=== PATIENT | male | born 1965 | race Caucasian/White ===

== ENCOUNTER 2017-01-19 16:51 | Emergency (ER) | payer MEDICAID ==
[2017-01-19 17:03] VITALS: BP 173/94
[2017-01-19] MEDS ORDERED: MORPHINE SULFATE 10 MG/ML INJ IM ONE (17:13)
[2017-01-19] MEDS ORDERED: ONDANSETRON 4 MG TAB.RAPDIS PO ONE (17:14)
[2017-01-19] MEDS ORDERED: METHOCARBAMOL 500 MG TABLET PO ONE (17:14)
--- NOTE | 2017-01-19 17:38 | ER Document Report ---
ED Fall - General Chief Complaint: Fall Stated Complaint: FALL,NECK,BACK PAIN Notes: 51 yo male c/o neck and upper back pain after falling from ladder. pt reports he fell from the 4th rung of the ladder. landed in a sitting position with right foot on 1st rung. pt denies hitting his head. no LOC, no shortness of breath or chest pain. fell approximately 6h [employer]. pain has progressively worsened. + radiation to left arm - HPI Occurred: This morning Where: Home Context: Fell from height - approx 4 ft Associated symptoms: None Location of injury/pain: Back - mid/upper, Neck Adult Front & Back: 1 - pain 2 - pain 3 - pain, numbness Quality of pain: Sharp - Related data Allergies/Adverse Reactions: No Known Allergies Allergy (Unverified 01/19/17 17:09) Past Medical History - General Information source: Patient - Social History Smoking Status: Current Every Day Smoker Chew tobacco use (# tins/day): No Frequency of alcohol use: None Drug Abuse: None Lives with: Family Family History: Reviewed & Not Pertinent - Past Medical History Cardiac Medical History: Reports: Hx Hypertension Review of Systems - Review of Systems Constitutional: No symptoms reported EENT: No symptoms reported Cardiovascular: No symptoms reported Respiratory: No symptoms reported Gastrointestinal: No symptoms reported Genitourinary: No symptoms reported Male Genitourinary: No symptoms reported Musculoskeletal: See HPI, Back pain, Neck pain Skin: No symptoms reported Hematologic/Lymphatic: No symptoms reported Neurological/Psychological: No symptoms reported -: Yes All other systems reviewed and negative Physical Exam - Vital signs Vitals: Temp Pulse Resp BP Pulse Ox 98.6 F 108 H 16 173/94 H 97 01/19/17 17:00 01/19/17 17:00 01/19/17 17:00 01/19/17 17:00 01/19/17 17:00 Interpretation: Normal - General General appearance: Alert In distress: Moderate - HEENT Head: Normocephalic, Atraumatic Eyes: Normal Conjunctiva: Normal Pupils: PERRL Mucous membranes: Moist Neck: Other - + cervical tenderness, guarded neck movement - Respiratory Respiratory status: No respiratory distress Chest status: Nontender Breath sounds: Normal Chest palpation: Normal - Cardiovascular Rhythm: Regular Heart sounds: Normal auscultation Murmur: No - Abdominal Inspection: Normal Distension: No distension Bowel sounds: Normal Tenderness: Nontender Organomegaly: No organomegaly - Back Back: Tender - + thoracic spinal and paraspinal tenderness - Extremities General upper extremity: Normal inspection, Nontender, Normal color, Normal ROM , Normal temperature General lower extremity: Normal inspection, Nontender, Normal color, Normal ROM , Normal temperature, Normal weight bearing. No: Everardo's sign - Neurological Neuro grossly intact: Yes Cognition: Normal Orientation: AAOx4 Gala Coma Scale Eye Opening: Spontaneous Gala Coma Scale Verbal: Oriented Gala Coma Scale Motor: Obeys Commands Gala Coma Scale Total: 15 Speech: Normal Motor strength normal: LUE, RUE, LLE, RLE Sensory: Normal - Psychological Associated symptoms: Normal affect, Normal mood - Skin Skin Temperature: Warm Skin Moisture: Dry Skin Color: Normal Course - Re-evaluation Re-evalutation: 01/19/17 17:41 pt evaluated, imaging and pain meds ordered. will continue to monitor 01/19/17 18:12 xrays negative. results reviewed with patient. will DC home with pain meds, pt to follow up with primary care. pt agreeable with plan and stable for discharge - Vital Signs Vital signs: Temp Pulse Resp BP Pulse Ox 98.6 F 108 H 16 173/94 H 97 01/19/17 17:12 01/19/17 17:12 01/19/17 17:12 01/19/17 17:12 01/19/17 17:12 Discharge - Discharge Clinical Impression: Thoracic sprain Cervical strain Qualifiers: Encounter type: initial encounter Qualified Code(s): S16.1XXA - Strain of muscle, fascia and tendon at neck level, initial encounter Hypertension Qualifiers: Hypertension type: essential hypertension Qualified Code(s): I10 - Essential ( primary) hypertension Condition: Stable Disposition: HOME, SELF-CARE Instructions: Neck Injury (Cervical Strain) ([facility]), Oral Narcotic Medication ( [facility]), Muscle Relaxers ([facility]), Ibuprofen (General) ([facility]), Warm Packs ([facility]), Ice Packs ([facility]) Additional Instructions: Your xrays were negative for fracture Take meds as prescribed alternate ice/heat to painful areas please follow up with your primary care if pain persists Prescriptions: Ibuprofen [Motrin 800 Mg Tablet] 800 mg PO Q6H #20 tablet Methocarbamol [Robaxin 500 Mg Tablet] 1,000 mg PO Q6 #30 tablet Oxycodone HCl/Acetaminophen [Percocet 5-325 mg Tablet] 1 - 2 tab PO ASDIR PRN # 25 tablet PRN Reason: Forms: Elevated Blood Pressure
== END 2017-01-19 18:29 | disposition home or self-care (01) ==
LOC: EDBD 16:51 → ER 16:51
DX: S23.3XXA Sprain of ligaments of thoracic spine, initial encounter (principal); S16.1XXA Strain of muscle, fascia and tendon at neck level, initial encounter; I10 Essential (primary) hypertension; M54.2 Cervicalgia; M54.9 Dorsalgia, unspecified; W10.9XXA Fall (on) (from) unspecified stairs and steps, initial encounter; F17.200 Nicotine dependence, unspecified, uncomplicated
CPT/HCPCS: 99284; 96372; 72070; 72125; S0119; J3490; J2270

== ENCOUNTER 2017-01-20 22:49 | Emergency (ER) | payer MEDICAID ==
[2017-01-20 23:35] VITALS: BP 159/102
== END 2017-01-21 03:53 | disposition left against medical advice (07) ==
LOC: ER 22:49
DX: Z53.21 Procedure and treatment not carried out due to patient leaving prior to being seen by health care provider (principal)

== ENCOUNTER 2017-01-21 02:09 | Emergency (ER) | payer MEDICAID ==
[2017-01-21] MEDS ORDERED: DIAZEPAM INJ 10 MG/2 ML DISP.SYRIN IM ONE (04:14)
--- NOTE | 2017-01-21 04:16 | ER Document Report ---
ED Neck/Back Problem - General Chief Complaint: Back Injury Stated Complaint: FALL,BACK PAIN Notes: Patient is a 51-year-old male that comes emergency department for chief complaint of pain in his mid upper back, worse in the left upper back/shoulder area. He states that he fell off a ladder 2 days ago (fell 4 rungs and backwards, not from a significant height) and was evaluated in this emergency department with negative imaging, he states that he has been taking his medicine but he has become more stiff, tight, and now he is having painful spasms that he cannot stand. Patient denies numbness, denies bowel or bladder changes, denies weakness, just states the pain is worsened. - Related Data Allergies/Adverse Reactions: No Known Allergies Allergy (Unverified 01/19/17 17:09) Past Medical History - General Information source: Patient - Social History Smoking Status: Never Smoker Frequency of alcohol use: None Drug Abuse: None Lives with: Family Family History: Reviewed & Not Pertinent - Past Medical History Cardiac Medical History: Reports: Hx Hypertension Renal/ Medical History: Denies: Hx Peritoneal Dialysis Surgical Hx: Negative Review of Systems - Review of Systems Constitutional: No symptoms reported EENT: No symptoms reported Cardiovascular: No symptoms reported Respiratory: No symptoms reported Gastrointestinal: No symptoms reported Genitourinary: No symptoms reported Male Genitourinary: No symptoms reported Musculoskeletal: See HPI Skin: No symptoms reported Hematologic/Lymphatic: No symptoms reported Neurological/Psychological: No symptoms reported Physical Exam - Vital signs Vitals: Temp Pulse Resp Pulse Ox 98.4 F 123 H 19 98 01/21/17 02:27 01/21/17 02:27 01/21/17 02:27 01/21/17 02:27 Interpretation: Normal - General General appearance: Anxious In distress: Mild - Patient appears to be in some pain - HEENT Head: Normocephalic, Atraumatic Eyes: Normal Conjunctiva: Normal Extraocular movements intact: Yes Eyelashes: Normal Pupils: PERRL Nasal: Normal Mouth/Lips: Normal Mucous membranes: Normal Pharynx: Normal Neck: Normal - Respiratory Respiratory status: No respiratory distress Chest status: Nontender. No: Tender Breath sounds: Normal. No: Decreased air movement, Wheezing Chest palpation: Normal - Cardiovascular Rhythm: Regular, Tachycardia Heart sounds: Normal auscultation, S1 appreciated, S2 appreciated Murmur: No - Abdominal Inspection: Normal Distension: No distension Bowel sounds: Normal Tenderness: Nontender Organomegaly: No organomegaly - Back Back: Tender - Tender bilateral para thoracic spinal muscles with spasm all the way up to the trapezius muscles, no midline tenderness, no saddle anesthesia, patient moves all extremities without difficulty, patient can ambulate without difficulty, normal distal neurovascular exam - Extremities General upper extremity: Normal inspection, Nontender, Normal ROM, Normal strength General lower extremity: Normal inspection, Nontender, Normal ROM, Normal strength - Neurological Neuro grossly intact: Yes Cognition: Normal Orientation: AAOx4 [place] Coma Scale Eye Opening: Spontaneous Gala Coma Scale Verbal: Oriented Siler Coma Scale Motor: Obeys Commands Gala Coma Scale Total: 15 Speech: Normal Motor strength normal: LUE, RUE, LLE, RLE Sensory: Normal - Psychological Associated symptoms: Normal affect, Normal mood - Skin Skin Temperature: Warm Skin Moisture: Dry Skin Color: Normal Course - Re-evaluation Re-evalutation: Patient tachycardic and hypertensive, however he appears much more relaxed on reexamination. I requested additional workup because of continued elevated vital signs but patient states that he has to leave because he has to take care of his father, he declines further workup, he denies chest pain, abdominal pain , headache, of note patient's vital signs were the same last time, patient states he has blood pressure medication at home which she will go home and take , he declines further workup. Patient agrees to return for any concerning or worsening symptoms. - Vital Signs Vital signs: Temp Pulse Resp BP Pulse Ox 98.4 F 123 H 19 171/105 H 98 01/21/17 02:27 01/21/17 02:27 01/21/17 02:27 01/21/17 02:29 01/21/17 02:27 Discharge - Discharge Clinical Impression: Upper back pain Condition: Stable Disposition: HOME, SELF-CARE Additional Instructions: Take medication as provided, apply heat to the area and rest, follow-up with your primary care. Return to the emergency department immediately for any concerning or worsening symptoms including chest pain, abdominal pain, numbness, fever, headache, or any other concerning symptoms. Prescriptions: Diazepam [Valium 5 mg Tablet] 1 - 2 tab PO TID #20 tablet Forms: Elevated Blood Pressure
[2017-01-21] MEDS ORDERED: HYDROMORPHONE HCL INJ/PF 2 MG/ML AMPULE IM ONE (05:24)
[2017-01-21 06:28] VITALS: BP 170/106
== END 2017-01-21 06:27 | disposition home or self-care (01) ==
LOC: ER 02:09
DX: M54.6 Pain in thoracic spine (principal); R00.0 Tachycardia, unspecified; I10 Essential (primary) hypertension; W11.XXXA Fall on and from ladder, initial encounter
CPT/HCPCS: 99283; 96372; J3360; J1170

== ENCOUNTER 2017-01-23 23:37 | Emergency (ER) | payer MEDICAID ==
--- NOTE | 2017-01-23 23:51 | ER Document Report ---
ED Neck/Back Problem - General Chief Complaint: Back Pain Stated Complaint: BACK PAIN Notes: The patient is a 51-year-old male, PMHx chronic lower back pain, who presents with continuing neck and back pain after he fell off a ladder 3 days ago. He was seen in the ER after the accident and had a negative CT of his cervical and lumbar spines. He is taking Percocet, Robaxin and Valium without much relief of his symptoms. He was given 1 mg IM Dilaudid by EMS prior to arrival. He denies weakness, numbness, ataxia, head injury, chest pain, shortness of breath , difficulty urinating or stooling, saddle anesthesia or abdominal pain. - Related Data Allergies/Adverse Reactions: No Known Allergies Allergy (Unverified 01/19/17 17:09) Past Medical History - General Information source: Patient - Social History Smoking Status: Current Every Day Smoker Family History: Reviewed & Not Pertinent - Past Medical History Cardiac Medical History: Reports: Hx Hypertension Renal/ Medical History: Denies: Hx Peritoneal Dialysis Review of Systems - Review of Systems Notes: REVIEW OF SYSTEMS: CONSTITUTIONAL: -fevers, -chills EENT: -eye pain, -difficulty swallowing, -nasal congestion CARDIOVASCULAR:-chest pain, -syncope. RESPIRATORY: -cough, -SOB GASTROINTESTINAL: -abdominal pain, - nausea, -vomiting, -diarrhea GENITOURINARY: -dysuria, -hematuria MUSCULOSKELETAL: +back pain, +neck pain SKIN: -rash or skin lesions. HEMATOLOGIC: -easy bruising or bleeding. LYMPHATIC: -swollen, enlarged glands. NEUROLOGICAL: -altered mental status or loss of consciousness, -headache, - weakness, -numbness PSYCHIATRIC: -anxiety, -depression. ALL OTHER SYSTEMS REVIEWED AND NEGATIVE. Physical Exam - Notes Notes: PHYSICAL EXAMINATION: GENERAL: Moderate distress. HEAD: Atraumatic, normocephalic. EYES: Pupils equal round and reactive to light, extraocular movements intact, sclera anicteric, conjunctiva are normal. ENT: nares patent, oropharynx clear without exudates. Moist mucous membranes. NECK: Normal range of motion, supple without lymphadenopathy LUNGS: Breath sounds clear to auscultation bilaterally and equal. No wheezes rales or rhonchi. HEART: Regular rate and rhythm without murmurs ABDOMEN: Soft, nontender, normoactive bowel sounds. No guarding, no rebound. No masses appreciated. EXTREMITIES: Normal range of motion, no pitting or edema. No cyanosis. BACK: Bilateral paraspinal tenderness and spasming, spasming over right scapular area NEUROLOGICAL: Cranial nerves grossly intact. Normal speech, normal gait. Normal sensory, motor, and reflex exams. SKIN: Warm, Dry, normal turgor, no rashes or lesions noted. Course - Re-evaluation Re-evalutation: Patient has already had negative CTs of his cervical and thoracic spine completed 3 days ago after the fall. He is able to ambulate and has no red flag signs for back pain at this time. A post void ultrasound was completed and it showed minimum urine in his bladder. Patient feels much better after pain medicine and Valium. His tachycardia on arrival resolved. Patient has leukocytosis, but suspect that this is a stress response to his injury. No signs of infection at this time. He is requesting a refill of his Lidoderm patches and a referral to a resource specialist. He has a neurosurgeon that was following him for his lower back pain. Told him to call his neurosurgeon for follow-up. Will also provide him with orthopedics follow-up. - Laboratory Result Diagrams: 01/24/17 00:20 01/24/17 00:20 Laboratory results interpreted by me: 01/24/17 01/24/17 00:20 00:20 WBC 14.5 H Hgb 12.9 L Lymphocytes % 8.8 L Monocytes % 14.0 H Absolute Neutrophils 11.1 H Absolute Monocytes 2.0 H Chloride 95 L Glucose 112 H Procedures - Additional Procedures IV insertion Time performed: 00:19 Additional Procedures: IV insertion Notes: 20 gauge IV placed under ultrasound guidance into left brachial vein. Discharge - Discharge Clinical Impression: Spasm of back muscles Contusion, back Qualifiers: Encounter type: subsequent encounter Laterality: unspecified laterality Qualified Code(s): S20.229D - Contusion of unspecified back wall of thorax, subsequent encounter Condition: Stable Disposition: HOME, SELF-CARE Additional Instructions: You must follow up with your primary care physician and neurosurgeon for further evaluation and treatment of your back contusions and spasms. Continue taking the medication prescribed to you. Add Naprosyn 500 mg twice a day and apply the Lidoderm patches prescribed. LOW BACK PAIN: Three out of every four people will have an episode of disabling back pain during their lifetime. Most commonly the pain is due to straining of the muscles and ligaments in the low back. Usual treatment includes: (1) Rest on a firm surface. Avoid lying on your stomach. (2) Ice pack the painful area. After a few days, gentle heat may be used intermittently to relax the area, or ice packs can be continued. (3) Medication may be needed -- muscle relaxers and antiinflammatory medicines are commonly used. (4) As the back improves, exercises are prescribed to strengthen the back and abdominal muscles. Your doctor will advise you on the proper care for your back at each stage in your recovery. You may be better in a few days -- or healing may take several weeks. If new symptoms of a "herniated disc" (radiation of pain, numbness, or tingling down the back of the leg or weakness in the leg) occur, you should be re-examined. Further testing may be necessary. PAIN MEDICATION INJECTION: You have received an injection of a pain medication. You should experience significant pain relief within 45 minutes. If this injection was a narcotic -- it will impair your judgement, slow your reaction time and make you sleepy (as well as relieve your pain). Narcotics also can cause nausea. You should not drive, work with machinery, or perform any task requiring mental alertness until all effects of the medication are gone -- six to eight hours. Do not take any alcohol, or sedatives, and do not take any other medication without checking with your physician. ORAL NARCOTIC MEDICATION: You have been given a prescription for pain control. This medication is a narcotic. It's best taken with food, as nausea can result if taken on an empty stomach. Don't operate machinery or drive within six hours of taking this medication. Do not combine this medicine with alcohol, or with any medication which can cause sedation (such as cold tablets or sleeping pills) unless you get permission from the physician. Narcotics tend to cause constipation. If possible, drink plenty of fluids and eat a diet high in fiber and fruits. Please be aware that prescription narcotics also have the potential for abuse. People become addicted to these medications because of the general sense of wellbeing that they induce. This feeling along with a significant reduction in tension, anxiety, and aggression provides a stimulating seductive quality to these drugs. Once your pain is under control, we encourage you to discard your unused narcotics. MUSCLE RELAXERS: Muscle relaxing medications are usually prescribed for acute muscle spasm or injury to the neck and back. They are often combined with antiinflammatory pain medication for increased relief. You may stop the muscle relaxer when the pain and stiffness have improved. Start the medication again if spasms recur. Muscle relaxers may cause drowsiness, especially with the first dose. Do not operate machinery or drive while under the effects of the medication. Most muscle relaxers last up to 24 hours. Do not combine the medication with alcohol. ICE PACKS: Apply ice packs frequently against the painful area. Many different schedules are recommended, such as "20 minutes on, 20 minutes off" or "one hour ice, two hours rest." If you need to work, you may need to go longer between ice treatments. You should plan to have the area ice packed AT LEAST one fourth of the time. The ice should be applied over the wrap, tape, or splint, or over a layer of cloth -- not directly against the skin. Some ice bags have a built-in cloth and can be put directly on the skin. WARM PACKS: After approximately two days, apply gentle heat (such as a heating pad or hot water bottle) for about 20 to 30 minutes about every two hours -- at least four times daily. Warmth and elevation will help you make a more rapid recovery , and will ease the pain considerably. Do not use HOT heat, and never apply heat for longer than 30 minutes. The continuous heat can invisibly damage skin and muscles -- even when no burn is seen on the surface. Damaged muscles can make you MORE sore. FOLLOW-UP CARE: If you have been referred to a physician for follow-up care, call the physician s office for an appointment as you were instructed or within the next two days. If you experience worsening or a significant change in your symptoms, notify the physician immediately or return to the Emergency Department at any time for re-evaluation. Prescriptions: Lidocaine [Lidoderm] 1 each TP Q12H PRN #15 adh..patch PRN Reason: Naproxen [Naprosyn 250 mg Tablet] 500 mg PO Q12H PRN #30 tablet PRN Reason: Referrals: INESSA LAZO MD [ACTIVE STAFF] - Follow up as needed
[2017-01-23] MEDS ORDERED: DIAZEPAM INJ 10 MG/2 ML DISP.SYRIN IV ONE (23:53)
[2017-01-24] MEDS ORDERED: MORPHINE SULFATE 10 MG/ML INJ IV ONE (00:23)
[2017-01-24 00:40] LABS: ABSOLUTE LYMPHOCYTES (AUTO) 1.3 10^3/uL (0.5-4.7); ABSOLUTE NEUT (AUTO) 11.1 10^3/uL (1.7-8.2); BASOPHILS % (AUTO) 0.2 % (0-2); EOSINOPHILS % (AUTO) 0.1 % (0-6); HEMATOCRIT 38.7 % (37.9-51.0); HEMOGLOBIN 12.9 g/dL (13.5-17.0); LYMPHOCYTES % (AUTO) 8.8 % (13-45); MEAN CORPUSCULAR HEMOGLOBIN 27.8 pg (27.0-33.4); MEAN CORPUSCULAR HGB CONC 33.3 g/dL (32.0-36.0); MEAN CORPUSCULAR VOLUME 83 fl (80-97); RED BLOOD COUNT 4.64 10^6/uL (4.35-5.55); RED CELL DISTRIBUTION WIDTH 13.3 % (11.5-14.0); SEGMENTED NEUTROPHILS % (AUTO) 76.9 % (42-78); WHITE BLOOD COUNT 14.5 10^3/uL (4.0-10.5)
[2017-01-24 00:59] LABS: ANION GAP 15 (5-19); BLOOD UREA NITROGEN 16 mg/dL (7-20); CALCIUM 8.9 mg/dL (8.4-10.2); CARBON DIOXIDE 30 mmol/L (22-30); CHLORIDE 95 mmol/L (98-107); CREATININE RESULT 0.75 mg/dL (0.52-1.25); GLUCOSE 112 mg/dL (75-110); POTASSIUM 3.9 mmol/L (3.6-5.0); SODIUM 139.7 mmol/L (137-145)
[2017-01-24 01:20] VITALS: BP 156/95
== END 2017-01-24 01:20 | disposition home or self-care (01) ==
LOC: ER 23:37
DX: S20.229D Contusion of unspecified back wall of thorax, subsequent encounter (principal); M54.9 Dorsalgia, unspecified; M54.5 Low back pain; Z79.899 Other long term (current) drug therapy; F17.200 Nicotine dependence, unspecified, uncomplicated; X58.XXXD Exposure to other specified factors, subsequent encounter; M62.830 Muscle spasm of back
CPT/HCPCS: 99283; 96374; 96375; 36415; 85025; 80048; J3360; J2270

== ENCOUNTER 2017-01-25 03:55 | Emergency (ER) | payer MEDICAID ==
[2017-01-25] MEDS ORDERED: HYDROMORPHONE HCL INJ/PF 2 MG/ML AMPULE IV ONE ×4 (04:35→13:23)
[2017-01-25 05:52] LABS: ALANINE AMINOTRANSFERASE 47 U/L (21-72); ALBUMIN 3.4 g/dL (3.5-5.0); ALKALINE PHOSPHATASE 66 U/L (38-126); ANION GAP 16 (5-19); ASPARTATE AMINO TRANSFERASE 51 U/L (17-59); BILIRUBIN,DIRECT 0.8 mg/dL (0.0-0.4); BILIRUBIN,TOTAL 1.2 mg/dL (0.2-1.3); BLOOD UREA NITROGEN 61 mg/dL (7-20); CALCIUM 8.1 mg/dL (8.4-10.2); CARBON DIOXIDE 25 mmol/L (22-30); CHLORIDE 95 mmol/L (98-107); GLUCOSE 106 mg/dL (75-110); POTASSIUM 4.1 mmol/L (3.6-5.0); SODIUM 136.1 mmol/L (137-145); TOTAL PROTEIN 6.9 g/dL (6.3-8.2)
[2017-01-25 05:56] LABS: ABSOLUTE EOSINOPHILS # (AUTO) 0.1 10^3/uL (0.0-0.6); ABSOLUTE MONOCYTES (AUTO) 1.7 10^3/uL (0.1-1.4); ABSOLUTE NEUT (AUTO) 11.8 10^3/uL (1.7-8.2); BASOPHILS % (AUTO) 0.2 % (0-2); HEMATOCRIT 33.4 % (37.9-51.0); HEMOGLOBIN 11.2 g/dL (13.5-17.0); HGB HCT DIFFERENCE 0.2; LYMPHOCYTES % (AUTO) 6.8 % (13-45); MEAN CORPUSCULAR HGB CONC 33.6 g/dL (32.0-36.0); MEAN CORPUSCULAR VOLUME 83 fl (80-97); MONOCYTES % (AUTO) 11.6 % (3-13); RED CELL DISTRIBUTION WIDTH 13.2 % (11.5-14.0); SEGMENTED NEUTROPHILS % (AUTO) 80.4 % (42-78); WHITE BLOOD COUNT 14.7 10^3/uL (4.0-10.5)
[2017-01-25] MEDS ORDERED: NORMAL SALINE 1000 ML 1,000 ML IV PRN (06:45)
--- NOTE | 2017-01-25 07:19 | ER Document Report ---
ED General <TAMIR DEY - Last Filed: 01/25/17 14:03> <ZULEMA AIKEN - Last Filed: 01/25/17 19:14> - General Chief Complaint: Pain Stated Complaint: PAIN HEAD TO TOE FROM PREVIOUS INJURY Notes: Patient is a 51 year old male who presents to the ED complaining of back pain from his neck to the middle of his back with new onset loss of function of his legs, urinary retention and stool incontinence Tuesday evening. His ÁNGEL is a fall from a ladder about 4 rungs high and landed standing straight on 2016. He has been evaluated multiple times in the department for back pain and muscle spasms, he has always had normal neuroexams with normal gait and strength up until today. He states that his pain has gotten increasingly worse since his initial injury with difficulty walking that started on Tuesday leading to another fall do to weakness on Tuesday. When he came to the ED to be evaluated her refused MRI at that time because he needed to go home to take care of his dad so he left AMA, he was able to walk out of the ED. He states he has been taking baclofen, valium, and motrin for his pain which he states it is not helping at all. Since Tuesday evening, has not been able to move/feel his legs, arms feel weak. PMH: ADHD, low back pain, HTN SH: current smoker (ZULEMA AIKEN) - Related Data Allergies/Adverse Reactions: No Known Allergies Allergy (Unverified 01/19/17 17:09) Past Medical History - Social History Smoking Status: Current Every Day Smoker Family History: Reviewed & Not Pertinent - Past Medical History Cardiac Medical History: Reports: Hx Hypertension Renal/ Medical History: Denies: Hx Peritoneal Dialysis - Immunizations Hx Diphtheria, Pertussis, Tetanus Vaccination: Yes <ZULEMA AIKEN - Last Filed: 01/25/17 19:14> Review of Systems - Review of Systems Constitutional: No symptoms reported EENT: No symptoms reported Cardiovascular: No symptoms reported Respiratory: No symptoms reported Gastrointestinal: No symptoms reported Genitourinary: No symptoms reported Male Genitourinary: No symptoms reported Musculoskeletal: Back pain, Muscle pain, Neck pain Skin: See HPI Hematologic/Lymphatic: No symptoms reported Neurological/Psychological: See HPI <ZULEMA AIKEN - Last Filed: 04/25/17 19:14> Physical Exam <TAMIR DEY - Last Filed: 01/25/17 14:03> - General General appearance: Anxious In distress: Mild - HEENT Head: Normocephalic, Atraumatic Eyes: Normal Conjunctiva: Normal Extraocular movements intact: Yes Eyelashes: Normal Pupils: PERRL Ears: Normal External canal: Normal Tympanic membrane: Normal Sinus: Normal Nasal: Normal Mouth/Lips: Normal Mucous membranes: Normal Pharynx: Normal Neck: Normal - Respiratory Respiratory status: No respiratory distress Chest status: Nontender Breath sounds: Normal Chest palpation: Normal - Cardiovascular Rhythm: Regular Heart sounds: Normal auscultation, S1 appreciated, S2 appreciated Murmur: No Gallop: None auscultated Pulses: Normal: Radial, Dorsalis pedis Normal capillary refill: Yes - Abdominal Inspection: Normal Distension: Distended, Tympanitic Bowel sounds: Normal Tenderness: Nontender Organomegaly: No organomegaly - Rectal Tenderness: No Hemorrhoids: None Prostate: Normal - Back Back: Tender. No: Deformity/step-off, CVA tenderness, Wounds - Extremities General upper extremity: Normal inspection, Tender, Normal color, Normal ROM, Normal temperature. No: Edema, Normal strength General lower extremity: Normal inspection, Nontender, Normal color, Normal temperature. 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 Sensory: Pin-prick - Patient intact up until T1-T2, then dull sensation along T dermatomes, completely absent response for lumbar and sacral dermatomes - Skin Skin Temperature: Warm Skin Moisture: Dry Skin Color: Normal Skin Turgor: Elastic <ZULEMA AIKEN - Last Filed: 01/25/17 19:14> - Vital signs Vitals: Resp Pulse Ox 18 94 01/25/17 04:04 01/25/17 04:04 - Rectal Notes: rectal tone absent (ZULEMA AIKEN) Course - Laboratory Result Diagrams: 01/25/17 05:25 01/25/17 05:25 <TAMIR DEY - Last Filed: 01/25/17 14:03> - Laboratory Result Diagrams: 01/25/17 05:25 01/25/17 05:25 - EKG Interpretation by Me EKG shows normal: Sinus rhythm Rate: Normal Rhythm: NSR When compared to previous EKG there are: No significant change <ZULEMA AIKEN - Last Filed: 01/25/17 19:14> - Re-evaluation Re-evalutation: Received report. Pt stable, moved up in bed. No c/o pain at this time. 01/25/17 14:03 Pt received dilaudid for pain several times this am. Frequent repositioning for comfort. Transport here, pt stable. Recently received 2 mg dilaudid for pain. Pt verbalized understanding to transfer. Sister at bedside and verbalized understanding as well. (TAMIR DEY) 01/25/17 08:06 Patient is a 51-year-old male who presents emergency Department for the Time but with new concerning for spinal cord injury given patient's inability to move his legs with absence of sensation or motor function and severe pain. CBC shows stable leukocytosis at 14, CMP shows new onset ARF with BUN/Creat elevated from 16/0.75 to 61/3.10 without history of kidney disease/injury. Based on these findings, a full spine MRI combo was ordered. MRI was not able to be completed due to MRI staff policy that will not do contrast for a creatinine above 3 and MRI would not be able to image the entire spine. With this information and discussion of this patient with supervising physicians Dr. Lev Pulido and Dr. Demetrius Rodriguez, [facility] evaluation. Patient has been accepted by Dr Maury Thompson in [facility]. Pending bed assignment and transfer ability. I have d/w day shift MEATMAN Valeria Dey who will follow the patient until transport is available. (ZULEMA AIKEN) - Vital Signs Vital signs: Temp Pulse Resp BP Pulse Ox 97.2 F 59 L 14 100/74 93 01/25/17 07:33 01/25/17 07:33 01/25/17 14:03 01/25/17 14:03 01/25/17 14:03 - Laboratory Laboratory results interpreted by me: 01/25/17 01/25/17 05:25 05:25 WBC 14.7 H RBC 4.00 L Hgb 11.2 L Hct 33.4 L Seg Neutrophils % 80.4 H Lymphocytes % 6.8 L Absolute Neutrophils 11.8 H Absolute Monocytes 1.7 H Sodium 136.1 L Chloride 95 L BUN 61 H Creatinine 3.10 H Est GFR ( Amer) 26 L Est GFR (Non-Af Amer) 21 L Calcium 8.1 L Direct Bilirubin 0.8 H Albumin 3.4 L Discharge <TAMIR DEY - Last Filed: 01/25/17 14:03> <ZULEMA AIKEN - Last Filed: 01/25/17 19:14> - Discharge Clinical Impression: Spinal cord injury Condition: Stable Disposition: [facility]
[2017-01-25] MEDS ORDERED: NORMAL SALINE 1000 ML 1,000 ML IV ONE (07:35)
--- NOTE | 2017-01-25 13:53 | ER Document Report ---
Doctor's Note Notes: 01/25/17 13:52 Transported here to take the patient at this time. He has remained stable, he was recently medicated for pain.
[2017-01-25 14:14] VITALS: BP 100/74
--- NOTE | 2017-01-26 21:15 | EKG REPORT ---
SEVERITY:- ABNORMAL ECG - SINUS RHYTHM NONSPECIFIC INTRAVENTRICULAR CONDUCTION DELAY : Confirmed by: Krissy Pendleton 26-Jan-2017 21:14:40
== END 2017-01-25 14:15 | disposition short-term general hospital (02) ==
LOC: ER 03:55
DX: T14.8 Other injury of unspecified body region (principal); W11.XXXA Fall on and from ladder, initial encounter; R33.9 Retention of urine, unspecified; R15.9 Full incontinence of feces; R26.2 Difficulty in walking, not elsewhere classified; M54.9 Dorsalgia, unspecified; N17.9 Acute kidney failure, unspecified; D72.829 Elevated white blood cell count, unspecified; M54.2 Cervicalgia; R20.0 Anesthesia of skin; F17.200 Nicotine dependence, unspecified, uncomplicated; I10 Essential (primary) hypertension
CPT/HCPCS: 93005; 96376; 99285; 96361; 51702; 96374; 36415; 85025; 80053; 93010; J1170; J7030